=== PATIENT | male | born 1975 ===

== ENCOUNTER 2022-05-12 05:11 | Day surgery (SDC) | payer OTHER ==
[~2022-05-12] VITALS: Ht 170.2 cm; Wt 68.0 kg
[~2022-05-12 05:11] MED LIST: ZYRTEC10 M3 PO
[2022-05-12] MEDS ORDERED: PERCOCET 5-3251 EACH PO (09:33)
== END 2022-05-12 11:30 | disposition home or self-care (01) ==
LOC: CIR.AMB 05:11
PROVIDERS: ATTEND Surgery
DX: N52.01 Erectile dysfunction due to arterial insufficiency (principal); J45.909 Unspecified asthma, uncomplicated
CPT/HCPCS: 54405; C1813